=== PATIENT | female | born 1975 | race Caucasian/White ===

== ENCOUNTER 2018-05-21 14:50 | Emergency (ER) | payer MEDICAID ==
[~2018-05-21] VITALS: Ht 160 cm; Wt 74.8 kg
[2018-05-21 14:57] VITALS: BP 130/77
--- NOTE | 2018-05-21 15:07 | NUR ---
42 YO F TO ER FOR R HAND LAC X30MIN AGO. PT STATES WASHING DISHES AND A GLASS BROKE CUTTING HER HAND. APPROX. 3-4 IN FULL THICKNESS FROM BOTTOM OF THUM TO BACK WRIST. BLEEDING UNDER CONTROL AT THIS TIME. CAP REFILL BRISK. RADIAL PULSES INTACT. ER MD MADE AWARE. WILL CONTINUE TO MONITIOR. HX: DENIES MED: PCN 500MG TODAY
[2018-05-21] MEDS ORDERED: LIDOCAINE 1% ***ER ONLY *** 10 MG/ML VIAL INJ ONE (15:20)
[2018-05-21] MEDS ORDERED: BACITRACIN OINT 500 UNITS/GM PKT TP ONE (15:20)
--- NOTE | 2018-05-21 15:21 | NUR ---
DR MARCUS AT BEDSIDE FOR PT EVALUATION
--- NOTE | 2018-05-21 16:30 | NUR ---
DR MARCUS AT BEDSIDE FOR LAC REPAIR
[2018-05-21 17:05] VITALS: BP 128/76
== END 2018-05-21 17:05 | disposition home or self-care (01) ==
LOC: MED 14:50
DX: S61.411A Laceration without foreign body of right hand, initial encounter (principal); W25.XXXA Contact with sharp glass, initial encounter; Y93.89 Activity, other specified; Y92.89 Other specified places as the place of occurrence of the external cause; Y99.8 Other external cause status
CPT/HCPCS: 12002; 90471; 90715; 99283; J2001

== ENCOUNTER 2024-05-15 16:19 | Emergency (ER) | payer MEDICAID, OTHER ==
[~2024-05-15] VITALS: Ht 152.4 cm; Wt 77.1 kg
[2024-05-15 16:50] VITALS: BP 168/84; PULSE 72; RESP 16; TEMP 98.6; O2SAT 99
[2024-05-15] MEDS ORDERED: NAPR-1704 PO (17:29)
[2024-05-15 18:49] LABS: FLU A ANTIGEN negative (NEGATIVE); FLU B ANTIGEN NEGATIVE (NEGATIVE)
== END 2024-05-15 17:36 | disposition home or self-care (01) ==
LOC: MED 16:19
DX: G44.209 Tension-type headache, unspecified, not intractable (principal); B34.9 Viral infection, unspecified; R03.0 Elevated blood-pressure reading, without diagnosis of hypertension; Z20.822 Contact with and (suspected) exposure to COVID-19; E11.9 Type 2 diabetes mellitus without complications; Z79.899 Other long term (current) drug therapy
CPT/HCPCS: 99283